=== PATIENT | female | born 1970 | race Caucasian/White ===

== ENCOUNTER → 2018-02-18 13:05 | Outpatient (CLI) | payer BC, SELFPAY ==
--- NOTE | 2018-02-18 13:20 | XR_ITS ---
XR shoulder LT min 2V HISTORY: Left shoulder pain ITS.REASON: ROTATOR CUFF SYNDROME OF LEFT SHOULDER ORDERING PHYSICIAN: Kiel Nolan MD PATIENT AGE: 47 years COMPARISON: None FINDINGS: No fracture or dislocation. No lytic or blastic change. There is normal mineralization. The joint spaces are well-preserved. No significant degenerative/arthritic changes. No erosive changes evident. No significant subacromial stenosis IMPRESSION: Negative left shoulder
== END ==
PROVIDERS: PCP Family Medicine; Visit Provider Family Medicine
DX: M75.102 Unspecified rotator cuff tear or rupture of left shoulder, not specified as traumatic (principal)
CPT/HCPCS: 73030

== ENCOUNTER 2018-03-14 08:30 | Outpatient (RCR) | payer BC, SELFPAY | END 2018-03-14 08:31 | disposition home or self-care (01) | LOC: OT 08:30 | PROVIDERS: PCP Family Medicine; Visit Provider Family Medicine | DX: M75.102 Unspecified rotator cuff tear or rupture of left shoulder, not specified as traumatic (principal) | CPT/HCPCS: 97014; 97033; 97110; 97163; 97165; G0283 ==

== ENCOUNTER → 2018-07-10 07:58 | Outpatient (CLI) | payer BC, SELFPAY ==
--- NOTE | 2018-07-10 08:01 | MR_ITS ---
MR shoulder LT wo con HISTORY:Left shoulder pain with limited range of motion. Inability to raise left arm ITS.REASON: INTERNAL DERANGEMENT OF LEFT SHOULDER ORDERING PHYSICIAN: Kiel Nolan MD PATIENT AGE: 47 years Comparison: 02/26/2019 TECHNIQUE: Standard multiplanar multiecho sequences are performed without contrast. FINDINGS: Minimal hypertrophic change along the undersurface of the acromion with mild subacromial stenosis. There is thickening of the supraspinatus tendon with increased signal distally consistent with tendinopathy/tendinosis. There is some subacromial fluid as well as fluid deep to the deltoid. The infraspinatus tendon appears intact as does the subscapularis and teres minor tendon.. No evidence of labral tear. The bicipital tendon is in place. Subcortical cystic change involves the greater tuberosity of the humerus at the region of the insertion of the supraspinatus tendon there is slight increased T2 signal involving the mid aspect of the neck of the humerus suggesting a small amount bone marrow edema. IMPRESSION: 1. Severe tendinopathy/tendinosis of the supraspinatus tendon. No definite tear. Mild subacromial stenosis 2. Prominent subcortical cystic changes of the humeral head at the greater tuberosity at the insertion of the supraspinatus tendon which can be seen with degenerative arthropathy and rotator cuff disease. 3. Fluid in the subdeltoid, subacromial regions, and subcoracoid area.
== END ==
PROVIDERS: PCP Family Medicine; Visit Provider Family Medicine
DX: M24.812 Other specific joint derangements of left shoulder, not elsewhere classified (principal); M75.102 Unspecified rotator cuff tear or rupture of left shoulder, not specified as traumatic
CPT/HCPCS: 73221

== ENCOUNTER → 2019-06-23 09:59 | Outpatient (CLI) | payer BC, SELFPAY ==
--- NOTE | 2019-06-23 10:09 | XR_ITS ---
XR shoulder RT min 2V HISTORY: ITS.REASON: RT ROTATOR CUFF ORDERING PHYSICIAN: Kiel Nolan MD PATIENT AGE: 48 years Comparison: None FINDINGS: No fracture or dislocation. No lytic or blastic change. There is normal mineralization. The joint spaces are well-preserved. No significant degenerative/arthritic changes. No erosive changes evident. IMPRESSION: Negative, no acute finding
== END ==
PROVIDERS: PCP Family Medicine; Visit Provider Family Medicine
DX: M67.911 Unspecified disorder of synovium and tendon, right shoulder (principal); M24.811 Other specific joint derangements of right shoulder, not elsewhere classified
CPT/HCPCS: 73030

== ENCOUNTER → 2023-02-14 08:02 | Outpatient (CLI) | payer BC, SELFPAY ==
--- NOTE | 2023-02-14 08:08 | XR_ITS ---
FINAL REPORT CLINICAL HISTORY: RT KNEE PAIN, NKT FINDINGS: Right knee Three views were obtained. There is no acute fracture or dislocation. The joint spaces appear normal. No soft tissue abnormality is identified. IMPRESSION: No acute process. Reviewed, Interpreted and Dictated by Corey Baez III, MD Transcribed by Lucie Barry Authenticated and [facility]
--- NOTE | 2023-02-14 08:08 | XR_ITS ---
FINAL REPORT CLINICAL HISTORY: RT HIP PAIN, NKT FINDINGS: Right hip Three views were obtained. There is no acute fracture or dislocation. The joint spaces appear normal. No soft tissue abnormality is identified. IMPRESSION: No acute process. Reviewed, Interpreted and Dictated by Corey Baez III, MD Transcribed by Lucie Barry Authenticated and [facility]
== END ==
PROVIDERS: PCP Family Medicine Geriatric Medicine; Visit Provider Family Medicine Geriatric Medicine
DX: M25.551 Pain in right hip (principal); M25.561 Pain in right knee
CPT/HCPCS: 73502; 73562